=== PATIENT | male | born 1990 | race Caucasian/White ===

== ENCOUNTER → 2020-07-06 | Outpatient (CLI) | payer BC ==
[2020-07-06 17:19] LABS: HEMATOCRIT 43.8 % (42.0-52.0); HEMOGLOBIN 14.8 g/dL (13.5-18.0)
== END ==
LOC: LAB 16:24
DX: E83.110 Hereditary hemochromatosis (principal)

== ENCOUNTER → 2020-07-17 | Outpatient (CLI) | payer BC ==
[2020-07-17 17:24] LABS: HEMATOCRIT 43.4 % (42.0-52.0); HEMOGLOBIN 14.6 g/dL (13.5-18.0)
== END ==
LOC: LAB 17:10
DX: E83.110 Hereditary hemochromatosis (principal)

== ENCOUNTER → 2020-07-26 | Outpatient (CLI) | payer BC ==
[2020-07-26 17:17] LABS: HEMATOCRIT 40.5 % (42.0-52.0); HEMOGLOBIN 13.6 g/dL (13.5-18.0)
== END ==
LOC: LAB 17:04
PROVIDERS: Family Medicine
DX: E83.110 Hereditary hemochromatosis (principal)

== ENCOUNTER → 2020-08-08 | Outpatient (CLI) | payer BC ==
[2020-08-08 17:29] LABS: HEMATOCRIT 41.8 % (42.0-52.0); HEMOGLOBIN 14.4 g/dL (13.5-18.0)
== END ==
LOC: LAB 17:18
PROVIDERS: Family Medicine
DX: E83.110 Hereditary hemochromatosis (principal)